=== PATIENT | male | born 1965 | race Caucasian/White ===

== ENCOUNTER 2020-10-14 03:08 | Emergency (ER) | payer OTHER ==
[~2020-10-14] VITALS: Ht 180.3 cm; Wt 77.1 kg
[2020-10-14] MEDS ORDERED: PLAQUENIL200 MG PO (03:19)
[2020-10-14] MEDS ORDERED: FISH OIL 1,0001 EAC9 PO (03:20)
[2020-10-14] MEDS ORDERED: PROTONIX 20 MG20 M1 PO (03:20)
[2020-10-14] MEDS ORDERED: FLONASE 0.05%50 MCG NARES (03:20)
[2020-10-14 04:04] VITALS: BP 151/97
== END 2020-10-14 04:04 | disposition home or self-care (01) ==
LOC: M.ERS 03:08
DX: S01.01XA Laceration without foreign body of scalp, initial encounter (principal); Z88.1 Allergy status to other antibiotic agents; W22.8XXA Striking against or struck by other objects, initial encounter; Y93.89 Activity, other specified; Y92.89 Other specified places as the place of occurrence of the external cause; Y99.0 Civilian activity done for income or pay